=== PATIENT | male | born 1960 | race Caucasian/White ===

== ENCOUNTER → 2016-05-05 | Outpatient (CLI) | payer BC, OTHER ==
[~2016-05-05] VITALS: Ht 177.8 cm; Wt 79.4 kg
[~2016-05-05] MED LIST: LIDOCAINE 2% INJ 100 MG/5 ML SDV (FOR ANES.) As Ordered ONE; NS 1,000 ML IV SCH; PROPOFOL 200 MG/20 ML VIAL As Ordered ONE
--- NOTE | 2016-05-05 10:37 | ROOR ---
Patient Name: Zachery Ramirez Procedure Date: 05/05/2016 10:13 AM Date of : 1960 Age: 55 Room: [facility] [place] Gender: Male Note Status: Finalized Procedure: Colonoscopy to Cecum Indications: High risk colon cancer surveillance: Personal history of colonic polyps, Last colonoscopy: 2013 Providers: Anatoly Stack MD Referring MD: Katelynn Fong NP Requesting Provider: Medicines: Monitored Anesthesia Care Complications: No immediate complications. Procedure: Pre-Anesthesia Assessment: - The heart rate, respiratory rate, oxygen saturations, blood pressure, adequacy of pulmonary ventilation, and response to care were monitored throughout the procedure. The Colonoscope was introduced through the anus and advanced to the cecum, identified by appendiceal orifice and ileocecal valve. The colonoscopy was performed without difficulty. The patient tolerated the procedure well. The quality of the bowel preparation was excellent. Findings: The perianal and digital rectal examinations were normal. Non-bleeding internal hemorrhoids were found during retroflexion. The hemorrhoids were mild, small and Grade I (internal hemorrhoids that do not prolapse). Scattered small-mouthed diverticula were found in the recto-sigmoid colon, sigmoid colon and descending colon. The exam was otherwise without abnormality on direct and retroflexion views. Impression: - Non-bleeding internal hemorrhoids. - Diverticulosis in the recto-sigmoid colon, in the sigmoid colon and in the descending colon. - The examination was otherwise normal on direct and retroflexion views. - No specimens collected. - The exam was otherwise normal to the cecum. Recommendation: - Patient has a contact number available for emergencies. The signs and symptoms of potential delayed complications were discussed with the patient. Return to normal activities tomorrow. Written discharge instructions were provided to the patient. - High fiber diet. - Discharge patient to home. - Continue present medications. - Repeat colonoscopy in 5 years for surveillance. - Return to referring physician. - The findings and recommendations were discussed with the patient's family. Anatoly Stack MD Anatoly Stack MD 05/05/2016 10:37:24 AM This report has been signed electronically. Number of Addenda: 0 Note Initiated On: 05/05/2016 10:13 AM Estimated Blood Loss: Estimated blood loss: none.
[2016-05-05 11:00] VITALS: BP 109/75
== END ==
LOC: M OPP 09:14
PROVIDERS: ATTEND Internal Medicine Gastroenterology
DX: Z12.11 Encounter for screening for malignant neoplasm of colon (principal); Z86.010 Personal history of colon polyps; K64.0 First degree hemorrhoids; K57.30 Diverticulosis of large intestine without perforation or abscess without bleeding; Z87.891 Personal history of nicotine dependence
CPT/HCPCS: 99156; 99157; G0105

== ENCOUNTER → 2020-07-06 | Outpatient (REF) | payer OTHER | LOC: M LAB REF 12:24 | PROVIDERS: ATTEND Nurse Practitioner Adult Health | DX: R74.8 Abnormal levels of other serum enzymes (principal) ==

== ENCOUNTER → 2021-09-13 | Outpatient (REF) | payer OTHER ==
[2021-09-13 17:29] LABS: APPEARANCE, URINE CLEAR (CLEAR); BACTERIA, URINE AUTO NEGATIVE (NEGATIVE); BILIRUBIN, URINE AUTO NEGATIVE (NEGATIVE); BLOOD, URINE BLOOD NEGATIVE (NEGATIVE); COLOR, URINE YELLOW (YELLOW); GLUCOSE, URINE (UA) AUTO NEGATIVE (NEGATIVE); KETONE, URINE AUTO NEGATIVE (NEGATIVE); LEUKOCYTE ESTERASE, URINE AUTO NEGATIVE (NEGATIVE); MUCUS, URINE SMALL (NEGATIVE); NITRITE, URINE AUTO NEGATIVE (NEGATIVE); PROTEIN, URINE AUTO NEGATIVE (NEGATIVE); RBC, URINE AUTO 0 /HPF (0-3); SPECIFIC GRAVITY URINE AUTO 1.006 (1.002-1.035); SQUAMOUS EPITHELIAL CELL UR AU 0 /HPF (0-6); UROBILINOGEN, URINE AUTO 0.2 mg/dL (0.0-2.0); WBC, URINE AUTO 0 /HPF (0-3)
== END ==
LOC: M LAB REF 16:10
PROVIDERS: ATTEND Nurse Practitioner Adult Health
DX: Z01.818 Encounter for other preprocedural examination (principal)

== ENCOUNTER → 2022-01-29 | Outpatient (CLI) | payer BC, OTHER ==
[~2022-01-29] MED LIST changes: -LIDOCAINE 2% INJ 100 MG/5 ML SDV (FOR ANES.) As Ordered ONE; -NS 1,000 ML IV SCH; -PROPOFOL 200 MG/20 ML VIAL As Ordered ONE; +ROSU20TA5
== END ==
LOC: M LABSMTC 09:50
PROVIDERS: ATTEND Anesthesiology
DX: Z01.818 Encounter for other preprocedural examination (principal); Z11.52 Encounter for screening for COVID-19

== ENCOUNTER 2022-01-30 11:27 | Day surgery (SDC) | payer BC, OTHER ==
[~2022-01-30] VITALS: Ht 175.3 cm; Wt 76.6 kg
[~2022-01-30 11:27] MED LIST changes: +NS 1,000 ML IV ONE
[2022-01-30] MEDS ORDERED: propofoL 200 MG/20 ML VIAL As Ordered ONE (13:20)
[2022-01-30 13:21] VITALS: BP 127/81
== END 2022-01-30 13:39 | disposition home or self-care (01) ==
LOC: M OPP 11:27
PROVIDERS: ATTEND Internal Medicine Gastroenterology
DX: Z12.11 Encounter for screening for malignant neoplasm of colon (principal); Z86.010 Personal history of colon polyps; K64.0 First degree hemorrhoids; E78.5 Hyperlipidemia, unspecified; Z79.899 Other long term (current) drug therapy

== ENCOUNTER 2023-03-20 06:05 | Day surgery (SDC) | payer BC, OTHER ==
[~2023-03-20] VITALS: Ht 175.3 cm; Wt 78.0 kg
[~2023-03-20 06:05] MED LIST changes: -NS 1,000 ML IV ONE; -ROSU20TA5; +ROSU20TA61 PO; +ceFAZolin SOD 2 GM in IV 1 EA IV ONE
[2023-03-20] MEDS ORDERED: LR 1,000 ML IV SCH ×2 (06:25→08:45)
[2023-03-20] MEDS ORDERED: fentaNYL 250 MCG/5 ML INJECTION As Ordered ONE (07:10)
[2023-03-20] MEDS ORDERED: MIDAZOLAM INJ 2MG/2ML VIAL As Ordered ONE (07:10)
[2023-03-20] MEDS ORDERED: KETOROLAC 60MG 2ML VIAL As Ordered ONE (07:11)
[2023-03-20] MEDS ORDERED: ONDANSETRON 4MG 2ML VIAL As Ordered ONE (07:11)
[2023-03-20] MEDS ORDERED: ACETAMINOPHEN 1000MG 100ML IV BAG As Ordered ONE (07:11)
[2023-03-20] MEDS ORDERED: ROCURONIUM BROMIDE 50MG/5ML VIAL As Ordered ONE (07:11)
[2023-03-20] MEDS ORDERED: propofoL 200 MG/20 ML VIAL As Ordered ONE (07:11)
[2023-03-20] MEDS ORDERED: LIDOCAINE 2% 100MG/5ML SDV (FOR ANES.) As Ordered ONE (07:12)
[2023-03-20] MEDS ORDERED: SUGAMMADEX SODIUM 500 MG/5 ML VIAL (BRIDION) As Ordered ONE (07:13)
[2023-03-20] MEDS ORDERED: METOCLOPRAMIDE INJ 10MG/2ML VIAL As Ordered ONE (07:43)
[2023-03-20] MEDS: LIDOCAINE W/EPINEPHRINE 1% 20ML VIAL As Ordered ONE (07:49)
[2023-03-20] MEDS ORDERED: ePHEDrine SULFATE 25 MG/5 ML(5MG/ML) SYRINGE As Ordered ONE (07:51)
[2023-03-20] MEDS ORDERED: HYDROMORPHONE HCL 0.5 MG/ 0.5 ML SYRINGE IV PRN (08:45)
[2023-03-20] MEDS ORDERED: fentaNYL 100 MCG/2 ML INJECTION IV PRN (08:45)
[2023-03-20] MEDS ORDERED: ONDANSETRON 4MG 2ML VIAL IV PRN (08:45)
[2023-03-20] MEDS ORDERED: oxyCODONE 5MG TAB PO PRN (08:45)
[2023-03-20] MEDS ORDERED: METOCLOPRAMIDE INJ 10MG/2ML VIAL IV PRN (08:45)
[2023-03-20] MEDS ORDERED: NS 1,000 ML IV SCH (10:05)
[2023-03-20] MEDS ORDERED: traMADol 50 MG TAB PO PRN (10:05)
[2023-03-20 10:13] VITALS: BP 115/76; TEMP 98.6; O2SAT 97
== END 2023-03-20 10:15 | disposition home or self-care (01) ==
LOC: M SDC 06:05
PROVIDERS: ATTEND Surgery
DX: K40.90 Unilateral inguinal hernia, without obstruction or gangrene, not specified as recurrent (principal); E78.00 Pure hypercholesterolemia, unspecified; Z79.899 Other long term (current) drug therapy; Z20.822 Contact with and (suspected) exposure to COVID-19
CPT/HCPCS: 49650; C1781; J0131; J1100; J1885; J2250; J2405; J2765; J3010; S2900